=== PATIENT | male | born 1935 | race Caucasian/White ===

== ENCOUNTER 2016-03-26 16:41 | Inpatient (IN) | payer MEDICARE ==
[~2016-03-26] VITALS: Ht 185.4 cm; Wt 49.9 kg
[2016-03-26 16:41] VITALS: BP 135/71; PULSE 96; RESP 16; TEMP 97; O2SAT 97
--- NOTE | 2016-03-26 16:45 | NUR ---
BIB ALS,c/o nausea,vomiting,diarrhea for a week and half. black stool for three days. + headache. pt AAOX4,no distress.skin is pale.
--- NOTE | 2016-03-26 16:45 | NUR ---
Patient to ER bed 3 to gown for evaluation. Side rails up. Report given to agata figueroa.
[2016-03-26] MEDS ORDERED: NACL 0.9% 1,000 ML IV ONE ×2 (16:58→17:00)
[2016-03-26] MEDS ORDERED: ONDANSETRON HCL 4 MG/2 ML VIAL IVP ONE (17:00)
[2016-03-26] MEDS ORDERED: KETOROLAC TROMETHAMINE 30 MG VIAL IVP ONE (17:00)
--- NOTE | 2016-03-26 17:10 | NUR ---
Placed on hospital monitor, blood pressure machine and pulse oximeter. To gown for exam. Side rails up.
--- NOTE | 2016-03-26 17:10 | NUR ---
ER at bedside examining patient.
[2016-03-26 17:18] LABS: BASOPHILS % (AUTO) 0.1 % (0.0-2.0); EOSINOPHILS % (AUTO) 0.2 % (0.0-4.0); LYMPHOCYTES # (AUTO) 0.9 K/uL (1.0-5.5); LYMPHOCYTES % (AUTO) 8.5 % (20.5-51.5); MEAN CORPUSCULAR HEMOGLOBIN 28 pg (27-31); MEAN CORPUSCULAR HGB CONC 33 % (32-36); MEAN CORPUSCULAR VOLUME 83 fL (79.0-98.0); MONOCYTES # (AUTO) 0.9 K/uL (0.0-1.0); MONOCYTES % (AUTO) 8.1 % (1.7-9.3); NEUTROPHILS # (AUTO) 8.8 K/uL (1.8-7.7); NEUTROPHILS % (AUTO) 83.1 % (40.0-70.0); PLATELET COUNT (AUTO) 208 K/uL (130-430); RED BLOOD CELL COUNT(AUTO) 2.22 MIL/uL (4.2-6.2); RED CELL DISTRIBUTION WIDTH 14.5 % (9.0-15.0); WHITE BLOOD COUNT (AUTO) 10.6 K/uL (4.8-10.8)
[2016-03-26 17:24] LABS: HEMATOCRIT 18.4 % (36-54); HEMOGLOBIN 6.1 g/dL (14.0-18.0)
[2016-03-26 17:27] LABS: ANION GAP 5 (5-15); CALCIUM 8.9 mg/dL (8.4-11.0); CHLORIDE 109 mmol/L (98-107); CREATININE 1.01 mg/dL (0.55-1.30); GLUCOSE 143 mg/dL (70-99); POTASSIUM 3.3 mmol/L (3.5-5.1); SODIUM SERUM 144 mmol/L (136-145); UREA NITROGEN, BLOOD 59 mg/dL (8-21)
[2016-03-26 17:36] LABS: ALANINE AMINOTRANSFERASE 16 U/L (12-78); ALBUMIN 2.3 g/dL (3.4-4.8); ASPARTATE AMINOTRANSFERASE 19 U/L (10-37); LIPASE 193 U/L (73-393); TOTAL BILIRUBIN 0.4 mg/dL (0.0-1.0); TOTAL PROTEIN, SERUM 5.1 g/dL (6.4-8.3)
--- NOTE | 2016-03-26 17:42 | NUR ---
rectal exam by Dr weems stool occult blood is positive.
[2016-03-26] MEDS ORDERED: PANTOPRAZOLE SODIUM 40 MG/VIAL (PROTONIX) IVP ONE ×2 (17:45→22:15)
--- NOTE | 2016-03-26 17:53 | NUR ---
# 18 gauge angiocath placed to RAC. Use of asceptic technique. Opsite placed over site. Blood return noted. Flushed with 10 cc of normal saline. No evidence of infiltration noted. Patient tolerated well.
[2016-03-26 18:40] LABS: IRON (SERUM) 22 mcg/dL (59-158); TOTAL IRON BIND. CAPACITY 239 ug/dL (250-450)
[2016-03-26 18:51] LABS: INR 1.2 (0.80-1.20); PROTHROMBIN TIME 13.5 SECS (9.5-12.5)
--- NOTE | 2016-03-26 19:21 | NUR ---
report given to german tutorqiana oh RN.
[2016-03-26] MEDS ORDERED: ATEN50TA PO (20:01)
[2016-03-26 20:02] LABS: BILIRUBIN,URINE NEGATIVE (NEGATIVE); BLOOD, URINE 1+ (NEGATIVE); CLARITY/URINE CLEAR (CLEAR); COLOR,URINE YELLOW (YELLOW); GLUCOSE,URINE NEGATIVE (NEGATIVE); KETONES,URINE NEGATIVE (NEGATIVE); LEUKOCYTE ESTERASE ,URINE NEGATIVE (NEGATIVE); NITRITE, URINE NEGATIVE (NEGATIVE); PROTEIN URINE NEGATIVE (NEGATIVE); UROBILINOGEN,URINE 0.2 (0.2-1.0)
[2016-03-26] MEDS ORDERED: FINA5TAB3 PO (20:02)
[2016-03-26] MEDS ORDERED: POTA-118 PO (20:08)
[2016-03-26] MEDS ORDERED: SILD20TA PO (20:11)
[2016-03-26] MEDS ORDERED: ALPR0.5T96 PO (20:12)
[2016-03-26] MEDS ORDERED: FURO-150 PO (20:14)
[2016-03-26] MEDS ORDERED: FLOR.1 PO (20:15)
[2016-03-26] MEDS ORDERED: D5NS 1,000 ML IV SCH (20:15)
[2016-03-26] MEDS ORDERED: SIMV80TA2 PO (20:16)
[2016-03-26] MEDS ORDERED: WARF5TAB2 PO (20:17)
[2016-03-26] MEDS ORDERED: LEVO75TA7 PO (20:18)
[2016-03-26 20:19] LABS: BACTERIA,URINE FEW /HPF (None Seen); MUCUS,URINE 1+ /LPF (None Seen); WBC,URINE 0-3 /HPF (0-3)
--- NOTE | 2016-03-26 20:25 | NUR ---
pt transferred to [facility] via gurney accompanied by RN and EMT. No s/s distress or IV infiltration. Pt's wallet present with pt and placed in drawer of side table, no mcclure noted inside. Placed in bed 118A. report given to Tuan TARANGO. All care endorsed.
--- NOTE | 2016-03-26 20:29 | NUR ---
ADMISSION: The patient, MADDI ANDUJAR, 80 y/o, M admitted by Dr. Kaur , was given written information regarding hospital policies, unit procedures and contact persons. Valuables consisting of wallet were checked.
[2016-03-26 20:30] VITALS: BP 111/56; PULSE 84; RESP 18; TEMP 97.4; O2SAT 96
--- NOTE | 2016-03-26 20:47 | NUR ---
CONSULTATION PAGED REASON FOR CONSULTATION:GI BLEED WAS CONSULT CALLED?Y PERSON WHO WAS NOTIFIED:MIKE CONSULTING PHYSICIAN:MACO VEGAS (KEN HERANDEZ HOGSHEAD OPENER) REGISTER OF WILLS SPECIALTY:GI REGISTER OF WILLS PHONE NUMBER:[phone]
--- NOTE | 2016-03-26 20:55 | NUR ---
Note Patient care endorsed to Kamlesh TARANGO.
[2016-03-26 21:00] VITALS: BP 111/56; PULSE 84; RESP 18; TEMP 97.4; O2SAT 96
[2016-03-26] MEDS ORDERED: POTASSIUM CHLORIDE 10 MEQ TAB.PRT.SR PO PRN (21:00)
[2016-03-26] MEDS ORDERED: ONDANSETRON HCL 4 MG/2 ML VIAL IVP PRN (21:00)
[2016-03-26] MEDS ORDERED: MORPHINE 2 MG/ML INJ. SYRINGE IVP PRN (21:00)
[2016-03-26] MEDS ORDERED: LORazepam 2 MG/ML VIAL IVP PRN (21:00)
[2016-03-26] MEDS ORDERED: MAGNESIUM SULFATE 50 ML IV PRN (21:00)
[2016-03-26] MEDS ORDERED: ZOLPIDEM TARTRATE 5 MG TABLET PO PRN (21:00)
[2016-03-26] MEDS ORDERED: DOCUSATE SODIUM 100 MG CAPSULE PO PRN (21:00)
[2016-03-26] MEDS ORDERED: ACETAMINOPHEN 325 MG TABLET PO PRN (21:00)
[2016-03-26 23:58] VITALS: BP 120/66; PULSE 78; RESP 18; TEMP 97.5; O2SAT 99
[2016-03-27] MEDS ORDERED: PANTOPRAZOLE SODIUM 40 MG/VIAL (PROTONIX) ONE ×2 (00:16→05:08)
[2016-03-27] MEDS: PANTOPRAZOLE SODIUM 40 MG in NS 50 ML IV SCH ×2 (00:21→05:15)
[2016-03-27 03:59] VITALS: BP 122/52; PULSE 82; RESP 18; TEMP 96.8; O2SAT 97
[2016-03-27] MEDS ORDERED: fentaNYL CITRATE/PF 100 MCG/2 ML AMP ONE (06:58)
[2016-03-27] MEDS ORDERED: MIDAZOLAM HCL 5 MG/5 ML VIAL ONE (06:59)
--- NOTE | 2016-03-27 07:01 | NUR ---
pt.recieved,via the er-dept.pt.presented anemic status:hgb:6.1,hct.18.4.pt.presents w/hogan catheter:description of urine: harvey.pt.presented with general wekaness bedrest butr alert.i have reestablished 2 iv access lines:i have initiated the blood trx:2 units.i have initiated protonix-drip.pt.is ordered to submit to egd:;p this am:03/27/16.i have witnessed the signing of the consent i have reviewed the test w/ the pt.pt's understanding satisfactory.pt.orderd npo ex:medications.no c/o pain,nausea nor sob upon excertion.
[2016-03-27] MEDS: MIDAZOLAM HCL 5 MG/5 ML VIAL ONE ×2 (07:29→07:31)
--- NOTE | 2016-03-27 07:40 | NUR ---
Patient to GI lab for EGD. Tolerated transport well.
[2016-03-27 08:00] VITALS: BP 122/60; PULSE 91; RESP 16; TEMP 98; O2SAT 97
[2016-03-27] MEDS ORDERED: FINASTERIDE 5 MG TABLET (PROSCAR) PO SCH (09:00)
[2016-03-27] MEDS ORDERED: ATENOLOL 50 MG TABLET (TENORMIN) PO SCH (09:00)
[2016-03-27] MEDS ORDERED: PANTOPRAZOLE SODIUM 40 MG/VIAL (PROTONIX) IVP SCH (09:00)
--- NOTE | 2016-03-27 09:14 | NUR ---
Nutrition Update Frank Scale 13 noted. Pt admitted for upper GI bleed. Diet: clear liquid, no red BMI: 14.5 kg/m2 RD to follow per nutrition care standards.
[2016-03-27] MEDS ORDERED: POTASSIUM CHLORIDE 40 MEQ, LIDOCAINE JECT 2% PF 100 MG 50 MG in NS 250 ML IV ONE (09:30)
--- NOTE | 2016-03-27 11:35 | NUR ---
Patient passed a large liquid, tar-like bm. Patient is cleaned and repositioned for comfort.
[2016-03-27 12:12] VITALS: BP 91/46; PULSE 105; RESP 17; TEMP 98.2; O2SAT 96
[2016-03-27 13:10] LABS: BASOPHILS % (AUTO) 0.1 % (0.0-2.0); EOSINOPHILS # (AUTO) 0.2 K/uL (0.0-0.4); LYMPHOCYTES # (AUTO) 1.2 K/uL (1.0-5.5); LYMPHOCYTES % (AUTO) 12.3 % (20.5-51.5); MEAN CORPUSCULAR HEMOGLOBIN 27 pg (27-31); MEAN CORPUSCULAR HGB CONC 32 % (32-36); MEAN CORPUSCULAR VOLUME 85 fL (79.0-98.0); MONOCYTES # (AUTO) 1.1 K/uL (0.0-1.0); MONOCYTES % (AUTO) 11.1 % (1.7-9.3); NEUTROPHILS % (AUTO) 74.5 % (40.0-70.0); PLATELET COUNT (AUTO) 182 K/uL (130-430); RED BLOOD CELL COUNT(AUTO) 2.41 MIL/uL (4.2-6.2); RED CELL DISTRIBUTION WIDTH 14.5 % (9.0-15.0); WHITE BLOOD COUNT (AUTO) 9.5 K/uL (4.8-10.8)
[2016-03-27 13:18] LABS: ANION GAP 5 (5-15); CALCIUM 8.7 mg/dL (8.4-11.0); CHLORIDE 110 mmol/L (98-107); CREATININE 1.08 mg/dL (0.55-1.30); GLUCOSE 155 mg/dL (70-99); POTASSIUM 3.1 mmol/L (3.5-5.1); SODIUM SERUM 144 mmol/L (136-145); UREA NITROGEN, BLOOD 60 mg/dL (8-21)
[2016-03-27 13:34] LABS: HEMATOCRIT 20.4 % (36-54); HEMOGLOBIN 6.6 g/dL (14.0-18.0)
--- NOTE | 2016-03-27 14:30 | NUR ---
DISCHARGE PLANNING Placed transportation packet in nurses station for possible hospital [place].
--- NOTE | 2016-03-27 15:08 | NUR ---
DC PLANNING: Baldomero Mayes, clinic charge nurse to contact pt. 'saylin at [facility] # [phone] . Nursing unit is waiting for transfer arrangement to net work. The pt. requested [facility] location.-- The pt . made aware, SUKHDEEP Brannon made aware.
--- NOTE | 2016-03-27 17:30 | NUR ---
DR. MAGUIRE IS CALLED ABOUT CURRENT STATUS, AND 2 UNITS OF TRANSFUSION IS ORDERED.
--- NOTE | 2016-03-27 17:32 | NUR ---
MIRANDA FROM [facility] CALLED, AND STATED THAT PATIENT CAN BE TRANSFERRED WITH BLOOD TRANSFUSION. VANESA, CHARGE NURSE, IS NOTIFIED.
--- NOTE | 2016-03-27 17:35 | NUR ---
FAMILY AT BEDSIDE. PATIENT'S CONDITION IS INFORMED TO FAMILY MEMBERS.
[2016-03-27 20:00] VITALS: BP 121/66; PULSE 99; RESP 16; TEMP 97.9; O2SAT 97
--- NOTE | 2016-03-27 20:00 | NUR ---
1999 BEGINNING OF PODIATRY ASSISTANT Patient is in bed undergoing blood transfusion unit 1 of 2 units PRBC. Patient is angry and confused, he wants to be transferred to [place]. The nurse tried to calm him down with somewhat successfully. The patient requested Ativan, so he can sleep. No signs of pain per patient, no respiratory distress noted. Report received from day shift nurse Ellis. Per Ellis, there is an order for the patient's transfer to [place]. Fall precautions in place.
--- NOTE | 2016-03-27 21:20 | NUR ---
2119 CALL FROM [facility] ABOUT TRANSFER The nurse received a call from Lisa from [place] re: transferring the patient to [place] in [place]. Lisa requested that the nurse calls her when the 1st unit of PRBC is done. She told the nurse to hang the 2nd unit of PRBC and that the patient will be transferred with ambulance CCT-RN to [facility] while in transfusion. The nurse discussed this with Dida, charge nurse and Dida advised the nurse that transferring the patient in the middle of blood transfusion is a bad idea. The nurse agreed to that, too.
--- NOTE | 2016-03-27 21:45 | NUR ---
2144 CALL FROM [place] The nurse received another call from Chili from [employer], story analyst. The nurse advised him that she will transfuse both PRBC units and then the patient will be transferred at 1 am. [facility] said that he will arrange transportation at 1 am as requested. The patient is in bed sleeping. No S/S of respiratory distress noted. BP 95/46. The blood is runnung at 153 mL/hr. The nurse lower the head of bed flat because of the low BP. No pain noted. Fall precautions in place. Addendum: 03/28/16 at 0259 by Denita Ibarra RN The 2nd unit PRBC was started at 21:50. No transfusion reaction noted.
--- NOTE | 2016-03-28 00:20 | NUR ---
0020 BLOOD/PRBC TRANSFUSION COMPLETED 2nd unit PRBC transfused. No transfusion reaction noted. VS within normal limits, BP 111/54, HR 80, SaO2 96%, T 98.4. Patient in bed sleeping. No S/S of pain or any other distress noted. Patient cleaned and prepared for transfer to [place]. He still has black tarry runny stools. Fall precautions in place.
[2016-03-28 00:26] VITALS: BP 111/64; PULSE 80; RESP 16; TEMP 98.3; O2SAT 97
[2016-03-28 01:03] VITALS: BP 111/64; PULSE 80; RESP 16; O2SAT 94
--- NOTE | 2016-03-28 01:15 | NUR ---
0115 AMBULANCE ARRIVED FOR THE TRANSFER The ambulance with the RN and the escort personnel arrived to the unit. The team had to clarify some questions with the poly area supervisor at [facility] in regards to the presence of RN which was booked in case the patient was transferred with the blood transfusing. The nurse hung the Protonix drip at 10cc/hr per active MD order. The patient signed the transfer and all required papers. The nurse and team cleaned him again and he was sent to [facility] with the requested packed with his records and CD with test results and images. No S/S of any distress noted, no pain.
[2016-03-28] MEDS ORDERED: PANTOPRAZOLE SODIUM 40 MG/VIAL (PROTONIX) ONE (01:43)
--- NOTE | 2016-03-28 02:00 | NUR ---
0200 PATIENT LEFT THE UNIT The patient was discharged at 02:00 and left with the ambulance and the escort personnel. Report was given previously to Corona TARANGO at [facility].
== END 2016-03-28 02:00 | disposition short-term general hospital (02) | DRG 378 ==
LOC: SED 16:41 → SMU 20:04
PROVIDERS: ADMIT General Practice; ATTEND General Practice
PROC: 30233N1 Transfusion of Nonautologous Red Blood Cells into Peripheral Vein, Percutaneous Approach (ICD-10-PCS; 2016-03-26)
PROC: 0W3P8ZZ Control Bleeding in Gastrointestinal Tract, Via Natural or Artificial Opening Endoscopic (ICD-10-PCS; principal; 2016-03-27 07:30)
DX: K92.2 Gastrointestinal hemorrhage, unspecified (principal); E44.0 Moderate protein-calorie malnutrition; Z68.1 Body mass index [BMI] 19.9 or less, adult; K31.82 Dieulafoy lesion (hemorrhagic) of stomach and duodenum; I27.2 Other secondary pulmonary hypertension; I10 Essential (primary) hypertension; E87.6 Hypokalemia; N40.0 Benign prostatic hyperplasia without lower urinary tract symptoms; D50.0 Iron deficiency anemia secondary to blood loss (chronic); K44.9 Diaphragmatic hernia without obstruction or gangrene; Z96.649 Presence of unspecified artificial hip joint; Z88.5 Allergy status to narcotic agent
CPT/HCPCS: 36415; 43255; 71010; 80048; 80053; 81000-TC; 83540-TC; 83550-TC; 83690-TC; 83735-TC; 84484; 85025; 85044-TC; 85610-TC; 86886; 86900; 86901; 86920; 93005; 96361; 96374; 96375; 99285; C9113; J1885; J2060; J2250; J2405; J3010; J3480; J7030; J7040; J7042; J7050; P9021

== ENCOUNTER 2018-01-09 10:28 | Emergency (ER) | payer MEDICARE ==
[~2018-01-09] VITALS: Ht 185.4 cm; Wt 77.1 kg
[~2018-01-09 10:28] MED LIST: ALPR0.5T PO; ATEN50TA PO; FINA5TAB3 PO; FLOR.1 PO; FURO-150 PO; LEVO75TA7 PO; POTA10TA15 PO; SILD20TA PO; SIMV80TA2 PO
[2018-01-09 10:37] VITALS: BP_SYST 165
[2018-01-09 11:27] LABS: BASOPHILS # (AUTO) 0.1 K/uL (0.0-0.2); BASOPHILS % (AUTO) 1.7 % (0.0-2.0); EOSINOPHILS # (AUTO) 0.1 K/uL (0.0-0.4); EOSINOPHILS % (AUTO) 1.5 % (0.0-4.0); HEMATOCRIT 42.6 % (36-54); HEMOGLOBIN 13.6 g/dL (14.0-18.0); LYMPHOCYTES # (AUTO) 0.7 K/uL (1.0-5.5); LYMPHOCYTES % (AUTO) 11.8 % (20.5-51.5); MEAN CORPUSCULAR HEMOGLOBIN 29 pg (27-31); MEAN CORPUSCULAR HGB CONC 32 % (32-36); MEAN CORPUSCULAR VOLUME 89 fL (79.0-98.0); MONOCYTES # (AUTO) 0.6 K/uL (0.0-1.0); MONOCYTES % (AUTO) 9.3 % (1.7-9.3); NEUTROPHILS # (AUTO) 4.7 K/uL (1.8-7.7); NEUTROPHILS % (AUTO) 75.7 % (40.0-70.0); PLATELET COUNT (AUTO) 215 K/uL (130-430); RED BLOOD CELL COUNT(AUTO) 4.78 MIL/uL (4.2-6.2); RED CELL DISTRIBUTION WIDTH 13.9 % (9.0-15.0); WHITE BLOOD COUNT (AUTO) 6.2 K/uL (4.8-10.8)
[2018-01-09 11:36] LABS: INR 2.8 (0.80-1.20)
[2018-01-09 11:48] LABS: ANION GAP 11 (5-15); CALCIUM 8.7 mg/dL (8.4-11.0); CHLORIDE 102 mmol/L (98-107); CREATININE 1.02 mg/dL (0.55-1.30); GLUCOSE 107 mg/dL (70-99); POTASSIUM 3.7 mmol/L (3.5-5.1); SODIUM SERUM 136 mmol/L (136-145); UREA NITROGEN, BLOOD 13 mg/dL (8-21)
[2018-01-09 11:54] LABS: ALANINE AMINOTRANSFERASE 38 U/L (12-78); ALBUMIN 3.5 g/dL (3.4-4.8); AMYLASE 55 U/L (0-100); ASPARTATE AMINOTRANSFERASE 37 U/L (10-37); LIPASE 245 U/L (73-393); TOTAL BILIRUBIN 0.8 mg/dL (0.0-1.0)
[2018-01-09 12:25] VITALS: BP_SYST 165
== END 2018-01-09 12:25 | disposition home or self-care (01) ==
LOC: SED 10:28
DX: R30.0 Dysuria (principal); I10 Essential (primary) hypertension; Z88.6 Allergy status to analgesic agent; Z79.899 Other long term (current) drug therapy
CPT/HCPCS: 36415; 80053; 82150-TC; 83690-TC; 85025; 85610-TC; 85730-TC; 99285

== ENCOUNTER 2018-01-10 09:24 | Emergency (ER) | payer MEDICARE ==
[~2018-01-10] VITALS: Ht 185.4 cm; Wt 77.1 kg
[2018-01-10 09:44] VITALS: BP_SYST 115
[2018-01-10 09:51] VITALS: BP_SYST 115
== END 2018-01-10 09:52 | disposition home or self-care (01) ==
LOC: SED 09:24
DX: R11.2 Nausea with vomiting, unspecified (principal); T36.7X5A Adverse effect of antifungal antibiotics, systemically used, initial encounter; I10 Essential (primary) hypertension; Z88.5 Allergy status to narcotic agent; Z79.899 Other long term (current) drug therapy; Y92.89 Other specified places as the place of occurrence of the external cause
CPT/HCPCS: 99281

== ENCOUNTER 2019-09-08 12:39 | Emergency (ER) | payer MEDICARE ==
--- NOTE | 2019-09-08 12:39 | NUR ---
PLACED IN BED 1
--- NOTE | 2019-09-08 12:40 | NUR ---
pt bib sqaud 154 in full cardiac arrest. Chest compressions were being performed upon arrival. Extensive brusing noted over the chewst wall. chest comnpressions resumed by ED staff
--- NOTE | 2019-09-08 12:40 | NUR ---
pt arrived to the ed w/ 20g IV to the lac running NS at 1 liter
--- NOTE | 2019-09-08 12:41 | NUR ---
et placed by Dr. Beard. 7.5. Secures 21 inches at the lip.
--- NOTE | 2019-09-08 12:41 | NUR ---
ER at bedside examining patient.
--- NOTE | 2019-09-08 12:53 | NUR ---
time of the called by. Dr. Beard at 3517
--- NOTE | 2019-09-08 14:15 | NUR ---
[facility] called at 1415. case # [id number].
--- NOTE | 2019-09-08 16:00 | NUR ---
Spoke w/ the pt's , Ayala Martinez. Update provided
[2019-09-08] MEDS ORDERED: ATROPINE SULFATE 1 MG/10 ML SYRINGE IVP ONE (16:32)
[2019-09-08] MEDS ORDERED: EPINEPHrine JECT 0.1 MG/ML SYR ONE (16:32)
--- NOTE | 2019-09-08 17:40 | NUR ---
pt picked up from [facility]. Telephone consent opbtained from the pt's .
== END 2019-09-08 17:40 | disposition expired ==
LOC: SED 12:39
DX: I46.9 Cardiac arrest, cause unspecified (principal); I10 Essential (primary) hypertension; F17.200 Nicotine dependence, unspecified, uncomplicated; Z79.899 Other long term (current) drug therapy; Z88.5 Allergy status to narcotic agent
CPT/HCPCS: 31500; 92950; 99291; J0171; J0461